=== PATIENT | female | born 2000 | race Caucasian/White ===

== ENCOUNTER 2019-03-30 20:24 | Emergency (ER) | payer OTHER, BC ==
[~2019-03-30] VITALS: Ht 157.5 cm; Wt 49.9 kg
[2019-03-30 20:55] VITALS: Ht 157.5 cm; Wt 49.9 kg
[2019-03-30 22:32] VITALS: BP 82/56
== END 2019-03-30 22:32 | disposition home or self-care (01) ==
LOC: ED 20:24
DX: J02.9 Acute pharyngitis, unspecified (principal)
CPT/HCPCS: J0561; Q0162

== ENCOUNTER 2019-07-31 04:53 | Emergency (ER) | payer OTHER ==
[~2019-07-31] VITALS: Ht 160 cm; Wt 50.1 kg
[2019-07-31 07:20] VITALS: BP 135/69
== END 2019-07-31 07:20 | disposition home or self-care (01) ==
LOC: ED 04:53
DX: N10 Acute pyelonephritis (principal)
CPT/HCPCS: J0696

== ENCOUNTER 2020-10-05 15:32 | Emergency (ER) | payer OTHER, SELFPAY ==
[~2020-10-05] VITALS: Ht 157.5 cm; Wt 54.4 kg
[2020-10-05 15:55] VITALS: BP 119/86; Ht 157.5 cm; Wt 54.4 kg
== END 2020-10-05 16:54 | disposition home or self-care (01) ==
LOC: ED 15:32
DX: U07.1 COVID-19 (principal); H66.92 Otitis media, unspecified, left ear
CPT/HCPCS: U0003